=== PATIENT | female | born 1975 | race Caucasian/White ===

== ENCOUNTER 2020-02-11 15:14 | Emergency (ER) | payer MEDICAID ==
[~2020-02-11] VITALS: Ht 154.9 cm; Wt 72.0 kg
[2020-02-11] MEDS ORDERED: KETOROLAC 30 MG/1 ML IVPush ONE (15:30)
[2020-02-11] MEDS ORDERED: SODIUM CHLORIDE 0.9% 1,000ML IVBOLUS ONE (15:30)
[2020-02-11] MEDS ORDERED: SODIUM CHLORIDE FLUSH 10ML SYR IVF ONE (15:30)
[2020-02-11] MEDS ORDERED: ONDANSETRON 2MG/ML, 2ML IVPush ONE (15:30)
[2020-02-11] MEDS ORDERED: MORPHINE SULFATE 4 MG/ML, 1ML IVPush PRN (15:30)
[2020-02-11] MEDS ORDERED: PHENAZOPYRIDINE 200 MG TABLET PO ONE (15:30)
[2020-02-11 15:54] LABS: MICROSCOPIC INDICATED
[2020-02-11 16:18] LABS: BASOPHILS # (AUTO) 0.02 x10^3/uL (0-0.1); BASOPHILS % (AUTO) 0 % (0-1); EOSINOPHILS # (AUTO) 0.06 x10^3/uL (0-0.4); EOSINOPHILS % (AUTO) 1 % (1-7); LYMPHOCYTES # (AUTO) 2.12 x10^3/uL (1-3.4); LYMPHOCYTES % (AUTO) 16 % (22-44); MD NO; MEAN CORPUSCULAR HEMOGLOBIN 33.1 pg (27.0-34.8); MEAN CORPUSCULAR HGB CONC 33.3 g/dL (32.4-35.8); MEAN CORPUSCULAR VOLUME 99.1 fL (80-100); MEAN PLATELET VOLUME 6.5 fL (7.4-10.4); MONOCYTES # (AUTO) 0.21 x10^3/uL (0.2-0.8); MONOCYTES % (AUTO) 2 % (2-9); NEUTROPHILS # (AUTO) 10.64 x10^3/uL (1.8-6.8); NEUTROPHILS % (AUTO) 82 % (42-75); PLATELET COUNT 337 x10^3/uL (130-400); RED BLOOD COUNT 4.44 x10^6/uL (3.82-5.3); RED CELL DISTRIBUTION WIDTH 14.4 % (9.6-15.2)
[2020-02-11 16:20] LABS: ALANINE AMINOTRANSFERASE 24 U/L (12-78); ALBUMIN 3.6 g/dL (3.4-5.0); ANION GAP 3 mmol/L (5-15); CALCIUM 8.5 mg/dL (8.5-10.1); CHLORIDE 113 mmol/L (98-107); CREATININE 0.61 mg/dL (0.55-1.02)
[2020-02-11 16:25] LABS: ALKALINE PHOSPHATASE 87 U/L (45-117); BILIRUBIN,TOTAL 0.3 mg/dL (0.2-1.0)
--- NOTE | 2020-02-11 17:11 | NUR ---
THIS RN DID NOT TRIAGE THIS PATIENT. PATIENT WAS TRIAGED BY MARIZA Kapoor RN.
--- NOTE | 2020-02-11 17:17 | NUR ---
DATA CENTER TECHNICIAN: PT TO ROOM FROM [place]
[2020-02-11] MEDS ORDERED: PHENAZOPYRIDINE 200 MG TABLET ONE (17:28)
[2020-02-11] MEDS ORDERED: ONDANSETRON 2MG/ML, 2ML ONE (17:28)
[2020-02-11] MEDS ORDERED: KETOROLAC 30 MG/1 ML ONE (17:28)
--- NOTE | 2020-02-11 17:43 | NUR ---
PT STATES BLOODY URINE AND BILAT FLANK PAIN STARTING LAST NIGHT, STATES HX OF KIDNEY STONE. PT IV STARTED, MEDICATED PER ORDERS. PT AWAITING CT. PLACED ON WALTORS, VSS. CONT TO MONITOR.
[2020-02-11] MEDS ORDERED: CEFTRIAXONE PMX 1GM/50ML 0 ML ONE (18:28)
--- NOTE | 2020-02-11 18:40 | NUR ---
PT STATE [facility] DECREASED, MEDICATIONS EFFECTIVE. IVABX HUNG PER ORDERS. PT TO D/C WHEN MEDICATIONS COMPLETE.
[2020-02-11] MEDS ORDERED: CEFTRIAXONE PMX 1GM/50ML 50 ML ONE (18:52)
[2020-02-11] MEDS ORDERED: MORPHINE SULFATE 4 MG/ML, 1ML ONE (18:52)
[2020-02-11] MEDS ORDERED: CEFTRIAXONE PMX 1GM/50ML 50 ML IV ONE (19:00)
[2020-02-11 19:05] VITALS: BP 147/100
== END 2020-02-11 19:07 | disposition home or self-care (01) ==
LOC: EDBD 15:14 → ED 18:28
DX: N39.0 Urinary tract infection, site not specified (principal); R31.9 Hematuria, unspecified; R10.9 Unspecified abdominal pain; F17.200 Nicotine dependence, unspecified, uncomplicated
CPT/HCPCS: 36415; 74176; 80053; 81001; 84703; 85025; 87077; 87086; 96365; 96375; 99284; J0696; J1885; J2405; J7030; 87186